=== PATIENT | male | born 1965 | race Caucasian/White ===

== ENCOUNTER → 2017-09-18 | Outpatient (CLI) | payer OTHER ==
[~2017-09-18] MED LIST: CHOL20002 PO; METF500T4 PO
[2017-09-18 09:09] LABS: BASOPHILS # (AUTO) 0.05 x10^3/uL (0-0.1); BASOPHILS % (AUTO) 1 % (0-1); EOSINOPHILS # (AUTO) 0.13 x10^3/uL (0-0.4); EOSINOPHILS % (AUTO) 2 % (1-7); LYMPHOCYTES # (AUTO) 1.55 x10^3/uL (1-3.4); LYMPHOCYTES % (AUTO) 24 % (22-44); MD NO; MEAN CORPUSCULAR HEMOGLOBIN 27.1 pg (27.5-34.5); MEAN CORPUSCULAR HGB CONC 33.5 g/dL (33.2-36.2); MEAN CORPUSCULAR VOLUME 80.9 fL (81-97); MEAN PLATELET VOLUME 8.4 fL (7.4-10.4); MONOCYTES % (AUTO) 8 % (2-9); NEUTROPHILS # (AUTO) 4.15 x10^3/uL (1.8-6.8); NEUTROPHILS % (AUTO) 65 % (42-75); PLATELET COUNT 218 x10^3/uL (130-400); RED BLOOD COUNT 5.92 x10^6/uL (4.38-5.82); RED CELL DISTRIBUTION WIDTH 14.6 % (9.4-14.8)
[2017-09-18 09:21] LABS: ALBUMIN 3.8 g/dL (3.4-5.0); ANION GAP 6 mmol/L (5-15); CALCIUM 8.9 mg/dL (8.5-10.1); CHLORIDE 107 mmol/L (98-107); CHOLESTEROL, TOTAL 149 mg/dL (140-239); CREATININE 0.88 mg/dL (0.7-1.3); TOTAL IRON BINDING CAPACITY 298 mcg/dL (250-450)
[2017-09-18 09:48] LABS: % IRON SATURATION 19 % (20-55); ALANINE AMINOTRANSFERASE 61 U/L (12-78); ALKALINE PHOSPHATASE 67 U/L (45-117); BILIRUBIN,TOTAL 0.5 mg/dL (0.2-1.0); CHOL/HDL RATIO 5.7; HDL CHOL % 17 % (26-37); HDL CHOLESTEROL (DIRECT) 26 mg/dL (40-60); IRON LEVEL 56 mcg/dL (65-175); LDL CHOLESTEROL,CALCULATED 98 mg/dL (54-169); LDL/HDL RATIO 3.8 (0.5-3.0); PREALBUMIN 20.1 mg/dL (20.0-40.0); TOTAL PROTEIN 7.7 g/dL (6.4-8.2); TRANSFERRIN 233 mg/dL (200-360); TRIGLYCERIDES 125 mg/dL (50-200); VLDL CHOLESTEROL 25 mg/dL (0-25)
[2017-09-18 09:54] LABS: FOLATE LEVEL > 20.0 ng/mL (3.1-17.5)
== END | disposition home or self-care (01) ==
LOC: STAR 08:05
PROVIDERS: ATTEND Thoracic Surgery (Cardiothoracic Vascular Surgery)
DX: Z01.818 Encounter for other preprocedural examination (principal)
CPT/HCPCS: 36415; 71046; 80053; 80061; 82306; 82607; 82728; 82746; 83540; 83550; 83970; 84134; 84425; 84466; 85025; 93005

== ENCOUNTER 2017-09-26 06:49 | Inpatient (IN) | payer OTHER ==
[~2017-09-26] VITALS: Ht 182.9 cm; Wt 146.6 kg
[2017-09-26] MEDS ORDERED: LACTATED RINGERS 1,000 ML IV SCH (07:02)
[2017-09-26] MEDS ORDERED: BUPIVACAINE/PF 0.25% ONE (07:18)
[2017-09-26] MEDS ORDERED: EPINEPHRINE 1 MG/ML, 1ML ONE (07:18)
[2017-09-26] MEDS ORDERED: SCOPOLAMINE PATCH, 1.5MG PATCH.TD72 TD ONE (07:30)
[2017-09-26] MEDS ORDERED: GABAPENTIN 300 MG CAPSULE PO ONE (07:30)
[2017-09-26] MEDS ORDERED: LIDOCAINE-MPF 1%, 2ML INFIL ONE (07:30)
[2017-09-26] MEDS ORDERED: ACETAMINOPHEN 500 MG TABLET PO ONE (07:30)
[2017-09-26] MEDS ORDERED: CEFAZOLIN 1,000 MG ONE (08:11)
[2017-09-26] MEDS ORDERED: NEOSTIGMINE 1 MG/ML, 10ML ONE (08:11)
[2017-09-26] MEDS ORDERED: PROPOFOL 10 MG/ML, 20ML ONE (08:11)
[2017-09-26] MEDS ORDERED: SUCCINYLCHOLINE 20 MG/ML, 10ML ONE (08:11)
[2017-09-26] MEDS ORDERED: DEXAMETHASONE 4 MG/ML, 1ML ONE (08:11)
[2017-09-26] MEDS ORDERED: MIDAZOLAM 1 MG/ML, 2ML ONE (08:11)
[2017-09-26] MEDS ORDERED: GLYCOPYRROLATE 0.2MG/1ML, 5ML ONE (08:11)
[2017-09-26] MEDS ORDERED: ROCURONIUM 10MG/ML,5ML ONE (08:11)
[2017-09-26] MEDS ORDERED: FENTANYL PF 250 MCG/5ML ONE (08:11)
[2017-09-26] MEDS ORDERED: ONDANSETRON 2MG/ML, 2ML ONE (08:11)
[2017-09-26] MEDS ORDERED: LIDOCAINE GEL 2%, 5ML ONE (08:12)
[2017-09-26] MEDS ORDERED: hydrALAzine 20 MG/ML, 1ML IV PRN (09:00)
[2017-09-26] MEDS ORDERED: OXYcodone 5 MG/5 ML ORAL.SOL UDC PO PRN (09:00)
[2017-09-26] MEDS ORDERED: DIPHENHYDRAMINE 50 MG/ML, 1ML IVPush PRN ×2 (09:00)
[2017-09-26] MEDS ORDERED: DIAZEPAM 5 MG/ML, 2ML IVPush PRN (09:00)
[2017-09-26] MEDS ORDERED: METOCLOPRAMIDE 5 MG/ML, 2ML IV PRN (09:00)
[2017-09-26] MEDS ORDERED: FENTANYL PF 100 MCG/2ML IV PRN (09:00)
[2017-09-26] MEDS ORDERED: PROMETHAZINE 25 MG/ML, 1ML IV PRN (09:00)
[2017-09-26] MEDS ORDERED: MEPERIDINE/PF 25MG/0.5ML IVPush PRN (09:00)
[2017-09-26] MEDS ORDERED: MORPHINE SULFATE 4 MG/ML, 1ML IVPush PRN ×2 (09:00→10:30)
[2017-09-26] MEDS ORDERED: MIDAZOLAM 1 MG/ML, 2ML IV PRN (09:00)
[2017-09-26] MEDS ORDERED: ALBUTEROL/IPRATROPIUM 2.5MG/0.5MG, 3 ML NPPB PRN (09:00)
[2017-09-26] MEDS ORDERED: EPHEDRINE 50 MG/ML, 1ML IM PRN (09:00)
[2017-09-26] MEDS ORDERED: HYDROmorphone 1 MG/ML, 1ML IV PRN (09:00)
[2017-09-26] MEDS ORDERED: PHENOL THROAT SPRAY BOTTLE MM PRN (10:30)
[2017-09-26] MEDS ORDERED: PROMETHAZINE 25 MG/ML, 1ML IM PRN (10:30)
[2017-09-26] MEDS ORDERED: DIPHENHYDRAMINE 50 MG/ML, 1ML IV PRN (10:30)
[2017-09-26] MEDS ORDERED: PROMETHAZINE 12.5 MG SUPP PR PRN (10:30)
[2017-09-26] MEDS ORDERED: ENALAPRILAT 1.25 MG/ML, 2ML IV PRN (10:30)
[2017-09-26] MEDS ORDERED: hydrALAzine 20 MG/ML, 1ML IVPush PRN (10:30)
[2017-09-26] MEDS ORDERED: ONDANSETRON 2MG/ML, 2ML IVPush PRN (10:30)
[2017-09-26] MEDS ORDERED: LORazepam 2 MG/ML, 1ML IV PRN (10:30)
[2017-09-26] MEDS ORDERED: LABETALOL 5MG/ML, 20ML ONE (10:53)
[2017-09-26] MEDS: LABETALOL 5MG/ML, 20ML IV PRN ×2 (10:58→11:03)
[2017-09-26] MEDS ORDERED: hydrALAzine 20 MG/ML, 1ML ONE (11:12)
[2017-09-26] MEDS ORDERED: EPHEDRINE 50 MG/ML, 1ML ONE (12:01)
[2017-09-26] MEDS: FAMOTIDINE 20 MG/2 ML IVPush SCH ×2 (12:31→20:04)
[2017-09-26] MEDS: LACTATED RINGERS 1,000 ML IV SCH ×3 (12:31→23:50)
[2017-09-26 13:13] VITALS: BP 132/79
[2017-09-26 20:00] VITALS: BP 142/78
[2017-09-27 02:00] VITALS: BP 154/81
[2017-09-27 04:06] VITALS: BP 156/82
[2017-09-27 06:01] LABS: BASOPHILS # (AUTO) 0.07 x10^3/uL (0-0.1); BASOPHILS % (AUTO) 1 % (0-1); EOSINOPHILS # (AUTO) 0.04 x10^3/uL (0-0.4); EOSINOPHILS % (AUTO) 0 % (1-7); LYMPHOCYTES # (AUTO) 1.46 x10^3/uL (1-3.4); LYMPHOCYTES % (AUTO) 12 % (22-44); MD NO; MEAN CORPUSCULAR HEMOGLOBIN 27.4 pg (27.5-34.5); MEAN CORPUSCULAR HGB CONC 33.3 g/dL (33.2-36.2); MEAN CORPUSCULAR VOLUME 82.1 fL (81-97); MEAN PLATELET VOLUME 8.9 fL (7.4-10.4); MONOCYTES # (AUTO) 0.74 x10^3/uL (0.2-0.8); MONOCYTES % (AUTO) 6 % (2-9); NEUTROPHILS # (AUTO) 9.83 x10^3/uL (1.8-6.8); NEUTROPHILS % (AUTO) 81 % (42-75); PLATELET COUNT 230 x10^3/uL (130-400); RED BLOOD COUNT 5.45 x10^6/uL (4.38-5.82)
[2017-09-27 06:14] LABS: CHLORIDE 107 mmol/L (98-107)
[2017-09-27] MEDS: LACTATED RINGERS 1,000 ML IV SCH (06:44)
[2017-09-27 07:07] LABS: ALBUMIN 3.5 g/dL (3.4-5.0); ANION GAP 12 mmol/L (5-15); CALCIUM 8.9 mg/dL (8.5-10.1); CREATININE 0.69 mg/dL (0.7-1.3)
[2017-09-27] MEDS: FAMOTIDINE 20 MG/2 ML IVPush SCH (07:26)
[2017-09-27 08:00] VITALS: BP 166/84
[2017-09-27] MEDS ORDERED: HYDR473S51 PO (08:59)
== END 2017-09-27 09:48 | disposition home or self-care (01) | DRG 621 ==
LOC: ORIP 06:49 → 4NOR 11:46
PROVIDERS: ADMIT Thoracic Surgery (Cardiothoracic Vascular Surgery); ATTEND Thoracic Surgery (Cardiothoracic Vascular Surgery)
PROC: 0DB64Z3 Excision of Stomach, Percutaneous Endoscopic Approach, Vertical (ICD-10-PCS; 2017-09-26)
PROC: 0BQT4ZZ Repair Diaphragm, Percutaneous Endoscopic Approach (ICD-10-PCS; principal; 2017-09-26 09:00)
DX: E66.01 Morbid (severe) obesity due to excess calories (principal); E78.00 Pure hypercholesterolemia, unspecified; K44.9 Diaphragmatic hernia without obstruction or gangrene; E11.9 Type 2 diabetes mellitus without complications; G89.29 Other chronic pain; M54.9 Dorsalgia, unspecified; G47.33 Obstructive sleep apnea (adult) (pediatric); Z86.718 Personal history of other venous thrombosis and embolism; Z82.61 Family history of arthritis; Z83.3 Family history of diabetes mellitus; Z80.49 Family history of malignant neoplasm of other genital organs; Z82.49 Family history of ischemic heart disease and other diseases of the circulatory system; Z84.89 Family history of other specified conditions; Z68.41 Body mass index [BMI] 40.0-44.9, adult
CPT/HCPCS: 36415; 80048; 82040; 82962; 85025; J0171; J0690; J1100; J2250; J2405; J2704; J2710; J3010; J3490; J0330; J0360; J7120; S0028